=== PATIENT | male | born 1945 ===

== ENCOUNTER 2024-10-16 05:38 | Day surgery (SDC) | payer OTHER ==
[2024-10-09 09:16] VITALS: BP 150/77
[2024-10-09 09:43] LABS: BASO % 0.5 % (0.1-1.2); EOS # 0.12 (0.04-0.54); EOS % 2.1 % (0.7-7.0); LYMPH # 1.58 (1.18-3.74); LYMPH % 27.2 % (19.3-53.1); MEAN PLATELET VOLUME 10.00 fl (9.4-12.4); MONO # 0.69 (0.24-0.82); MONO % 11.9 % (4.7-12.5); NEUT # 3.38 (1.56-6.13); NEUT % 58.3 % (34.0-71.1); RED CELL DISTRIBUTION WIDTH 12.2 % (11.6-14.4)
[2024-10-09 10:10] LABS: INR 1.05
[2024-10-09 10:43] LABS: ALT/SGPT 25.0 U/L (12-78); AST/SGOT 20.0 U/L (15-37); BILIRUBIN TOTAL 0.6 mg/dL (0.3-1.2); BUN CREA RATIO 18.0 (7.0-25.0); CREATININE SERUM 0.85 mg/dL (0.70-1.30); GFR 87.4; GLOBULINA 3.4 G/DL (2.4-3.5); GLUCOSE FASTING 116.0 mg/dL (65-100); OSMOLALITY SERUM 287.0 MOSM/KG (275-295)
[~2024-10-16] VITALS: Ht 162.6 cm; Wt 80.3 kg
[~2024-10-16 05:38] MED LIST: AVAPRO150 MG PO; METFORMIN HCL500 MG; PROSCAR5 MG PO; TAMS0.4C PO
[2024-10-16] MEDS ORDERED: SUGAMMADEX SODIUM 200 MG/2 ML VIAL IV ONE (09:45)
== END 2024-10-16 12:35 | disposition home or self-care (01) ==
LOC: CIR.AMB 05:38
PROVIDERS: ATTEND Internal Medicine
DX: K29.50 Unspecified chronic gastritis without bleeding (principal); K31.89 Other diseases of stomach and duodenum; R93.3 Abnormal findings on diagnostic imaging of other parts of digestive tract; D37.1 Neoplasm of uncertain behavior of stomach